=== PATIENT | female | born 1965 | race Asian ===

== ENCOUNTER 2021-09-17 11:30 | Outpatient (REF) | payer OTHER, SELFPAY ==
[2021-09-17 13:10] LABS: MANUAL DIFF FLAG NO
[2021-09-17 13:31] LABS: Basophils Percent Auto 0.3 % (0-2); Eosinophils Absolute Auto 0.1 X10*3/uL (0.0-0.4); Eosinophils Percent Auto 1.7 % (0-4); Hematocrit 31.2 % (37.0-47.0); Hemoglobin 9.5 g/dl (12.0-16.0); Imm Gran Abs Auto 0.01 X10*3/uL (0.00-0.03); Imm Gran Pct Auto 0.2 % (0.0-0.4); Lymphocytes Absolute Auto 1.2 X10*3/uL (1.2-4.9); Lymphocytes Percent Auto 20.3 % (20-40); Mean Corpuscular HGB Conc 30.4 g/dl (31.0-35.0); Mean Corpuscular Hemoglobin 23.2 pg (27.0-33.0); Mean Corpuscular Volume 76.3 fL (80.0-98.0); Mean Platelet Volume 9.6 fL (9.4-12.3); Monocytes Absolute Auto 0.5 X10*3/uL (0.1-1.2); Monocytes Percent Auto 8.1 % (2-11); Neutrophils Percent Auto 69.4 % (45-73); Platelet Count 372 X10*3/uL (160-400); Red Blood Count 4.09 X10*6/uL (4.20-5.50); Red Cell Distribution Width 15.7 % (11.0-16.0); White Blood Count 5.8 X10*3/uL (4.8-10.8)
[2021-09-17 13:37] LABS: Appearance Urine CLEAR; Color Urine YELLOW; Glucose Urine UA NEG (NEG); Leukocyte Esterase Urine NEG (NEG); Nitrite Urine NEG (NEG); Urine Blood NEG (NEG); Urine Ketones NEG (NEG); Urine Protein NEG (NEG-TRACE)
[2021-09-17 13:45] LABS: Alanine Aminotransferase 20 U/L (0-31); Albumin Level 4.4 g/dL (3.5-5.0); Alkaline Phosphatase 53 U/L (39-117); Anion Gap 13 (12-20); Aspartate Amino Transferase 21 U/L (5-31); Bilirubin Total 0.7 mg/dL (0.0-1.0); Blood Urea Nitrogen 14 mg/dL (9-16); Calcium 9.2 mg/dL (8.4-10.2); Carbon Dioxide 23 mmol/L (22-29); Chloride 107 mmol/L (96-108); Cholesterol 202 mg/dL; Estimated Glomerular Filt Rate > 60; Glucose Fasting 95 mg/dL (60-99); HDL Cholesterol 52 mg/dL; LDL Cholesterol Calculated 132 mg/dl; Potassium 4.3 mmol/L (3.3-5.1); Sodium 139 mmol/L (135-145); Total Protein 7.1 g/dL (6.5-8.0); Triglycerides 92 mg/dL
[2021-09-17 13:50] LABS: Bacteria Urine TRACE /LPF; RBC Urine 0-2 /HPF (0); Squamous Epithelial Cell Urine TRACE /LPF; WBC Urine 0-2 /HPF (0-4)
[2021-09-17 14:06] LABS: Thyroid Stimulating Hormone 0.27 uIU/mL (0.32-4.0); Vitamin D 25-OH Total 28.8 ng/mL (>30)
== END 2021-09-17 11:31 | disposition home or self-care (01) ==
LOC: HO.HMGCLDS 11:30
PROVIDERS: PCP Internal Medicine; Visit Provider Internal Medicine
DX: Z00.00 Encounter for general adult medical examination without abnormal findings (principal)
CPT/HCPCS: 36415; 80053; 80061; 81001; 82306; 84443; 85025

== ENCOUNTER 2021-09-19 12:37 | Outpatient (REF) | payer OTHER, SELFPAY ==
[2021-09-19 13:52] LABS: MANUAL DIFF FLAG NO
[2021-09-19 13:53] LABS: Basophils Percent Auto 0.3 % (0-2); Eosinophils Absolute Auto 0.1 X10*3/uL (0.0-0.4); Eosinophils Percent Auto 1.6 % (0-4); Hematocrit 29.8 % (37.0-47.0); Hemoglobin 9.2 g/dl (12.0-16.0); Imm Gran Abs Auto 0.02 X10*3/uL (0.00-0.03); Imm Gran Pct Auto 0.3 % (0.0-0.4); Lymphocytes Absolute Auto 1.2 X10*3/uL (1.2-4.9); Lymphocytes Percent Auto 19.8 % (20-40); Mean Corpuscular HGB Conc 30.9 g/dl (31.0-35.0); Mean Corpuscular Hemoglobin 23.5 pg (27.0-33.0); Mean Platelet Volume 9.5 fL (9.4-12.3); Monocytes Absolute Auto 0.6 X10*3/uL (0.1-1.2); Neutrophils Absolute Auto 4.3 x10*3/uL (2.0-8.3); Platelet Count 399 X10*3/uL (160-400); Red Blood Count 3.92 X10*6/uL (4.20-5.50); Red Cell Distribution Width 15.9 % (11.0-16.0); White Blood Count 6.2 X10*3/uL (4.8-10.8)
[2021-09-19 14:46] LABS: Iron 31 mcg/dL (30-160); Percent Iron Saturation 6 % (15-50); Total Iron Binding Capacity 525 mcg/dL (228-428); Unsaturated Iron Binding 494 ug/dL
[2021-09-19 14:58] LABS: Folate 17.1 ng/mL (> or = 4.0); Vitamin B12 425 pg/mL (200-900)
[2021-09-19 15:00] LABS: Ferritin 6 ng/mL (10-250); Free T4 (Free Thyroxine) 0.99 ng/dL (0.71-1.85); Thyroid Stimulating Hormone 0.19 uIU/mL (0.32-4.0)
[2021-09-21 04:06] LABS: Triiodothyronine T3 Free 3.2 pg/mL (2.3-4.2)
== END 2021-09-19 12:38 | disposition home or self-care (01) ==
LOC: HO.HMGCLDS 12:37
PROVIDERS: PCP Internal Medicine; Visit Provider Internal Medicine
DX: D64.9 Anemia, unspecified (principal)
CPT/HCPCS: 36415; 82607; 82728; 82746; 83540; 84439; 84443; 84481; 85025

== ENCOUNTER 2022-10-14 11:32 | Outpatient (REF) | payer OTHER, SELFPAY ==
[2022-10-14 13:33] LABS: MANUAL DIFF FLAG NO
[2022-10-14 13:35] LABS: Basophils Percent Auto 0.3 % (0-2); Eosinophils Absolute Auto 0.1 X10*3/uL (0.0-0.4); Eosinophils Percent Auto 2.3 % (0-4); Hematocrit 34.5 % (37.0-47.0); Hemoglobin 11.6 g/dl (12.0-16.0); Imm Gran Abs Auto 0.01 X10*3/uL (0.00-0.03); Imm Gran Pct Auto 0.2 % (0.0-0.4); Lymphocytes Absolute Auto 1.2 X10*3/uL (1.2-4.9); Lymphocytes Percent Auto 19.9 % (20-40); Mean Corpuscular HGB Conc 33.6 g/dl (31.0-35.0); Mean Corpuscular Hemoglobin 29.8 pg (27.0-33.0); Mean Corpuscular Volume 88.7 fL (80.0-98.0); Mean Platelet Volume 9.1 fL (9.4-12.3); Monocytes Absolute Auto 0.4 X10*3/uL (0.1-1.2); Monocytes Percent Auto 6.5 % (2-11); Neutrophils Absolute Auto 4.2 x10*3/uL (2.0-8.3); Neutrophils Percent Auto 70.8 % (45-73); Platelet Count 359 X10*3/uL (160-400); Red Blood Count 3.89 X10*6/uL (4.20-5.50); Red Cell Distribution Width 12.6 % (11.0-16.0)
[2022-10-14 13:37] LABS: Appearance Urine Turbid; Color Urine Yellow; Glucose Urine UA Negative (Negative); Leukocyte Esterase Urine Trace (Negative); Nitrite Urine Negative (Negative); Specific Gravity - Urine 1.025 (1.005-1.025); UMIC TRIGGER UA YES; Urine Blood Negative (Negative); Urine Ketones Trace mg/dL (Negative); Urine Protein Trace mg/dL (Neg-Trace)
[2022-10-14 13:39] LABS: Bacteria Urine 2+ (None Seen); Hyaline Casts Urine 0-2 /LPF (0-2)
[2022-10-14 13:54] LABS: Alanine Aminotransferase 25 U/L (0-31); Albumin Level 4.2 g/dL (3.5-5.0); Alkaline Phosphatase 45 U/L (39-117); Anion Gap 9 (12-20); Aspartate Amino Transferase 21 U/L (5-31); Bilirubin Total 0.8 mg/dL (0.0-1.0); Blood Urea Nitrogen 14 mg/dL (9-16); Calcium 8.6 mg/dL (8.4-10.2); Carbon Dioxide 27 mmol/L (22-29); Chloride 107 mmol/L (96-108); Cholesterol 207 mg/dL; Estimated Glomerular Filt Rate > 60; Glucose Fasting 99 mg/dL (60-99); HDL Cholesterol 61 mg/dL; Iron 62 mcg/dL (30-160); LDL Cholesterol Calculated 124 mg/dl; Percent Iron Saturation 18 % (15-50); Potassium 3.9 mmol/L (3.3-5.1); Sodium 139 mmol/L (135-145); Total Iron Binding Capacity 354 mcg/dL (228-428); Total Protein 6.4 g/dL (6.5-8.0); Triglycerides 113 mg/dL; Unsaturated Iron Binding 292 ug/dL
[2022-10-14 14:10] LABS: Ferritin 15 ng/mL (10-250); Free T4 (Free Thyroxine) 0.88 ng/dL (0.71-1.85); Thyroid Stimulating Hormone 0.39 uIU/mL (0.32-4.0); Vitamin D 25-OH Total 25.9 ng/mL (>30)
[2022-10-16 06:49] LABS: Triiodothyronine T3 Free 3.7 pg/mL (2.3-4.2)
== END 2022-10-14 11:33 | disposition home or self-care (01) ==
LOC: HO.HMGCLDS 11:32
PROVIDERS: PCP Internal Medicine; Visit Provider Internal Medicine
DX: Z00.00 Encounter for general adult medical examination without abnormal findings (principal); N39.3 Stress incontinence (female) (male); D64.9 Anemia, unspecified
CPT/HCPCS: 36415; 80053; 80061; 81001; 82306; 82728; 83540; 84439; 84443; 84481; 85025

== ENCOUNTER 2023-10-27 10:45 | Outpatient (REF) | payer OTHER, SELFPAY ==
[2023-10-27 13:53] LABS: MANUAL DIFF FLAG NO
[2023-10-27 13:57] LABS: Appearance Urine Cloudy; Color Urine Yellow; Glucose Urine UA Negative (Negative); Leukocyte Esterase Urine Negative (Negative); Nitrite Urine Negative (Negative); PH 5.5 (5.0-9.0); Specific Gravity - Urine 1.025 (1.005-1.025); Urine Blood Negative (Negative); Urine Ketones Trace mg/dL (Negative); Urine Protein Negative (Neg-Trace)
[2023-10-27 13:58] LABS: Basophils Percent Auto 0.4 % (0-2); Eosinophils Absolute Auto 0.2 X10*3/uL (0.0-0.4); Eosinophils Percent Auto 2.2 % (0-4); Hematocrit 34.7 % (37.0-47.0); Hemoglobin 11.4 g/dl (12.0-16.0); Imm Gran Abs Auto 0.02 X10*3/uL (0.00-0.03); Imm Gran Pct Auto 0.3 % (0.0-0.4); Lymphocytes Absolute Auto 1.3 X10*3/uL (1.2-4.9); Lymphocytes Percent Auto 18.5 % (20-40); Mean Corpuscular HGB Conc 32.9 g/dl (31.0-35.0); Mean Corpuscular Hemoglobin 27.7 pg (27.0-33.0); Mean Corpuscular Volume 84.4 fL (80.0-98.0); Mean Platelet Volume 9.8 fL (9.4-12.3); Monocytes Absolute Auto 0.6 X10*3/uL (0.1-1.2); Monocytes Percent Auto 7.7 % (2-11); Neutrophils Absolute Auto 5.1 x10*3/uL (2.0-8.3); Neutrophils Percent Auto 70.9 % (45-73); Platelet Count 302 X10*3/uL (160-400); Red Blood Count 4.11 X10*6/uL (4.20-5.50); Red Cell Distribution Width 13.9 % (11.0-16.0); White Blood Count 7.2 X10*3/uL (4.8-10.8)
[2023-10-27 15:00] LABS: Alanine Aminotransferase 27 U/L (0-31); Albumin Level 4.2 g/dL (3.5-5.0); Alkaline Phosphatase 54 U/L (39-117); Anion Gap 13 (12-20); Aspartate Amino Transferase 20 U/L (5-31); Bilirubin Total 0.7 mg/dL (0.0-1.0); Blood Urea Nitrogen 13 mg/dL (9-16); Calcium 9.2 mg/dL (8.4-10.2); Carbon Dioxide 26 mmol/L (22-29); Chloride 105 mmol/L (96-108); Cholesterol 218 mg/dL (<200); Estimated Glomerular Filt Rate > 60; Glucose Fasting 86 mg/dL (60-99); HDL Cholesterol 59 mg/dL (>40); Iron 58 mcg/dL (30-160); LDL Cholesterol Calculated 126 mg/dL (<100); Percent Iron Saturation 16 % (15-50); Potassium 3.8 mmol/L (3.3-5.1); Sodium 140 mmol/L (135-145); Total Iron Binding Capacity 373 mcg/dL (228-428); Total Protein 6.9 g/dL (6.5-8.0); Triglycerides 166 mg/dL (<150); Unsaturated Iron Binding 315 ug/dL
[2023-10-27 15:15] LABS: Ferritin 9 ng/mL (10-250); Thyroid Stimulating Hormone 0.46 uIU/mL (0.32-4.0); Vitamin D 25-OH Total 21.1 ng/mL (>30)
== END 2023-10-27 10:46 | disposition home or self-care (01) ==
LOC: HO.HMGCLDS 10:45
PROVIDERS: PCP Internal Medicine; Visit Provider Internal Medicine
DX: Z00.00 Encounter for general adult medical examination without abnormal findings (principal); N39.3 Stress incontinence (female) (male)
CPT/HCPCS: 36415; 80053; 80061; 81003; 82306; 82728; 83540; 84443; 85025; 87086

== ENCOUNTER → 2025-08-31 15:29 | Outpatient (AMB) | payer OTHER, SELFPAY ==
--- NOTE | 2025-08-31 15:34 | A.OFFPC_ITS ---
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 - The patient is overdue for a surveilla nce colonoscopy. - Her last procedure was approximately s even years ago, in September 2019, at which time an 8 mm polyp was removed, with a recommendation for a repeat colo noscopy in five years. - She reports a concern about hearing lo ss, prompted by her 's observation that she frequently asks him to repeat himself. - The patient herself denies any subject sara hearing difficulty, including with phone conversations, and notes no one else has commented on her hearing. - The patient reports urinary leakage wi th physical exertion, such as heavy lifting, running, coughing, and laughing too much. - She underwent a previous evaluation fo r this, at which time surgery was suggested, but she declined. - She has heard of Kegel exercises but d oes not currently perform them and reports the incontinence does not significantly affect her quality of life. - Past medical history is notable for ir on deficiency. - She is postmenopausal. - For health maintenance, she is up-to-d ate with mammograms but is due for a gynecological exam. - She declines influenza vaccinations. - The patient does not take any medicati ons. Social History - Employment: The patient works as a dante ntitative business travel consultant. - Tobacco Use: Denies smoking. - Alcohol Use: Denies alcohol consumptio n. - Exercise: Reports running at least twi ce a week for more than 10 miles. Results - Colonoscopy (September 2019): Revealed an 8 mm polyp, which was removed. [facility] History History of colonoscopy (~09/24/19) Family History (Updated 08/31/25 @ 15:41 by RAOUL Miller) Father No problems noted. Mother Diabetes Social History (Updated 08/31/25 @ 15:35 by RAOUL Miller) Housing: House Alcohol intake: current Alcohol intake frequency: does not drink Patient Tobacco Use Status: Never used Tobacco service: No Current occupational status: employed Cognitive needs: No Hearing needs: No Vision needs: No Questionnaire PHQ-9 Over the last 2 weeks, how often have you been bothered by any of the following problems? 1. Little interest or pleasure in doing things: not at all 2. Feeling down, depressed, or hopeless: not at all 3. Trouble falling or staying asleep, or sleeping too much: not at all 4. Feeling tired or having little energy: not at all 5. Poor appetite or overeating: not at all 6. Feeling bad about yourself - or that you are a failure or have let yourself o r your family down: not at all 7. Trouble concentrating on things, such as reading the newspaper or watching television: not at all 8. Moving or speaking so slowly that other people could have noticed. Or the opposite - being so fidgety or restless that you have been moving around a lot more than usual: not at all 9. Thoughts that you would be better off or of hurting yourself in some way: not at all Total score: 0 Source: Developed by Drs. Arcenio Ponce, Jo Ann Hubbard, Delgado De La O and colleagues, with an educational jonah from [employer]. Thrive Questionnaire Date Thrive assessed: 08/31/25 I am a: Patient What is your living situation today?: I have a steady place to live Within the past 12 months, did the food you bought not last and you didn't have the money to get more?: Never true Within the past 12 months, did you worry whether your food would run out before you got money to buy more?: Never true Do you have trouble paying for medicines?: No Do you have trouble getting transportation to medical appointments?: No Do you have trouble paying your heating and electricity bill?: No Do you have trouble taking care of your child, family member or friend?: No Do you have trouble with day-to-day activities such as bathing, preparing meals, shopping, managing finances, etc.?: No Are you currently unemployed and looking for a job?: No Are you interested in more education?: No Please select the resources that you would like help with: None THRIVE Score: 0 AUDIT C Alcohol Use Questionnaire (AUDIT-C) 1. How often do you have a drink containing alcohol?: Never 3. How often do you have six or more drinks on one occasion?: Never Total Score: 0 BRANDON-7 AMB Questionnaire BRANDON-7 Date BRANDON - 7 assessed: 08/31/25 Feeling nervous, anxious, or on edge: 0 = Not at all Not being able to stop or control worryin = Not at all Worrying too much about different things: 0 = Not at all Trouble relaxin = Not at all Being so restless that it is hard to sit still: 0 = Not at all Becoming easily annoyed or irritable: 0 = Not at all Feeling afraid as if something awful might happen: 0 = Not at all Total BRANDON-7 score (0-4 normal; 5-9 mild; 10-14 moderate; 15-21 severe): 0 Source: Developed by Drs. Arcenio Ponce, Jo Ann Hubbard, Delgado De La O and colleagues, with an educational jonah from [employer]. Review of Systems Narrative Review of Systems - General: Reports feeling well. - HEENT: Reports potential hearing difficulties as noted by her . - Denies vision problems, halos, or issues with night driving. - Genitourinary: Reports urinary leakage with exertion, coughing, and laughing. - She is postmenopausal. - Musculoskeletal: Denies pain. - Sleep: Reports good sleep. Physical exam (Primary Care) Vital Signs: Last Vital Signs Temp 98.2 F 08/31/25 15:36 Pulse 80 08/31/25 15:36 Resp 14 08/31/25 15:36 BP 111/53 L 08/31/25 15:36 Pulse Ox 99 08/31/25 15:36 Oxygen Delivery Method Room Air 08/31/25 15:36 BMI result Body Mass Index 25.1 Tobacco/Smoking Status: Tobacco use Status Tobacco use date assessed 08/31/25 08/31/25 15:35 Patient Tobacco Use Status Never used Tobacco 08/31/25 15:35 PHQ-9: PHQ-9 Score PHQ-9: Total score 0 08/31/25 15:35 Thrive Assessment: Date of Thrive Assessment Date Thrive assessed 08/31/25 08/31/25 15:35 Narrative Physical Exam General: Cooperative and healthy appearing Nutritional Appearance: Well nourished Orientation/consciousness: Patient oriented x3 Limitations: No limitations Head: Normal to inspection General: Appearance normal, both eyes and all related structures Neck: Normal visual inspection Chest: Normal palpation of entire chest wall Respiratory: Normal respiratory effort Neurology: Patient oriented x3 Office Procedures Flu Questionnaire Does the patient have a severe egg allergy?: No Does the patient have severe life threatening allergies?: No Does the patient have a fever or illness today?: No Has the patient ever had Guillain-Amigo Syndrome?: No Has the patient ever had any past reaction to a flu shot?: No Immunizations Fluarix [id number] (PF) 45 mcg (15 mcg x 3)/0.5 mL IM syringe Performing Provider: Fernando Orantes MD [facility] Documented (not given) by: RAOUL Miller on 08/31/25 15:41 Reason Not Given: Patient Refused Coding Level of Care Code New Pt Prev Care 40-64y(55485) Diagnoses Hyperlipidemia E78.5 Annual physical exam Z00.00 Assessment & Plan Assessment & Plan (1) Hyperlipidemia: Code(s): E78.5 - Hyperlipidemia, unspecified Plan: Blood work ordered (2) Annual physical exam: Code(s): Z00.00 - Encounter for general adult medical examination without abnormal findings Plan: History of Present Illness - The patient is a 59-year-old female presenting for an annual physical examination. - The patient is overdue for a surveillance colonoscopy. - Her last procedure was approximately seven years ago, in September 2019, at which time an 8 mm polyp was removed, with a recommendation for a repeat colonoscopy in five years. - She reports a concern about hearing loss, prompted by her 's observation that she frequently asks him to repeat himself. - The patient herself denies any subjective hearing difficulty, including with phone conversations, and notes no one else has commented on her hearing. - The patient reports urinary leakage with physical exertion, such as heavy lifting, running, coughing, and laughing too much. - She underwent a previous evaluation for this, at which time surgery was suggested, but she declined. - She has heard of Kegel exercises but does not currently perform them and reports the incontinence does not significantly affect her quality of life. - Past medical history is notable for iron deficiency. - She is postmenopausal. - For health maintenance, she is up-to-date with mammograms but is due for a gynecological exam. - She declines influenza vaccinations. - The patient does not take any medications. Social History - Employment: The patient works as a clinical consultant. - Tobacco Use: Denies smoking. - Alcohol Use: Denies alcohol consumption. - Exercise: Reports running at least twice a week for more than 10 miles. Review of Systems - General: Reports feeling well. - HEENT: Reports potential hearing difficulties as noted by her . - Denies vision problems, halos, or issues with night driving. - Genitourinary: Reports urinary leakage with exertion, coughing, and laughing. - She is postmenopausal. - Musculoskeletal: Denies pain. - Sleep: Reports good sleep. Physical Exam General: Cooperative and healthy appearing Nutritional Appearance: Well nourished Orientation/consciousness: Patient oriented x3 Limitations: No limitations Head: Normal to inspection General: Appearance normal, both eyes and all related structures Neck: Normal visual inspection Chest: Normal palpation of entire chest wall Respiratory: Normal respiratory effort Neurology: Patient oriented x3 Results - Colonoscopy (September 2019): Revealed an 8 mm polyp, which was removed. Plan - Colonoscopy: A referral will be placed for a surveillance colonoscopy. - The patient will be contacted by the scheduling office for an appointment. - Hearing Evaluation: A referral for an audiology test will be sent. - The patient was advised she could cancel the appointment if she chooses not to proceed. - Stress Urinary Incontinence: Recommended performing Kegel exercises two to three times daily for two to three minutes per session to strengthen pelvic floor muscles. - Health Maintenance: Ordered blood work, including cholesterol, kidney function, liver function, complete blood count, and thyroid studies. - Advised patient to schedule her due gynecological exam/Pap smear. - Lifestyle: Encouraged to continue regular exercise, healthy eating, and stress management. - Follow-up: Plan to see the patient in six months. Discussion Notes I advised the patient that she is overdue for a surveillance colonoscopy, which was recommended every 5 years after an 8 mm polyp was removed in 2019. I have placed a referral and informed her that she will receive a call to schedule the procedure. Regarding her 's concern about her hearing, I have offered a referral for formal audiology testing, explaining she can cancel if she does not wish to proceed. I explained that her urinary leakage with exertion is known as stress incontinence and can be managed with Kegel exercises to improve pelvic muscle tone. I reassured her that treatment decisions are based on the impact on quality of life. I ordered routine lab work, including a CBC, metabolic panel, lipid panel, and thyroid function tests, and instructed her to schedule her overdue gynecological exam. We discussed the efficacy and limitations of cancer screening tests, and I encouraged her to continue her healthy lifestyle. All questions were answered, and she will follow up in 6 months. Patient Instructions - You will receive a phone call to schedule an appointment for a colonoscopy. - If you do not hear from them within two weeks, please contact our office. - You will also receive a call to schedule a hearing test. - If you do not want to have this test done, you may cancel the appointment. - To help with urine leakage, perform Kegel exercises 2-3 times every day. - To do this, tighten the muscles you would use to stop urinating, and hold for a few seconds, repeating for 2-3 minutes. - Please go to the lab to get your blood work done. - We will call you with the results. - Please schedule an appointment with a care advocate for a female checkup since it is now due. - Continue to exercise regularly and eat a healthy diet. - Please schedule a follow-up appointment in our office in 6 months. Plan Plan - Colonoscopy: A referral will be placed for a surveillance colonoscopy. - The patient will be contacted by the scheduling office for an appointment. - Hearing Evaluation: A referral for an audiology test will be sent. - The patient was advised she could cancel the appointment if she chooses not to proceed. - Stress Urinary Incontinence: Recommended performing Kegel exercises two to three times daily for two to three minutes per session to strengthen pelvic floor muscles. - Health Maintenance: Ordered blood work, including cholesterol, kidney function, liver function, complete blood count, and thyroid studies. - Advised patient to schedule her due gynecological exam/Pap smear. - Lifestyle: Encouraged to continue regular exercise, healthy eating, and stress management. - Follow-up: Plan to see the patient in six months. Discussion Notes I advised the patient that she is overdue for a surveillance colonoscopy, which was recommended every 5 years after an 8 mm polyp was removed in 2019. I have placed a referral and informed her that she will receive a call to schedule the procedure. Regarding her 's concern about her hearing, I have offered a referral for formal audiology testing, explaining she can cancel if she does not wish to proceed. I explained that her urinary leakage with exertion is known as stress incontinence and can be managed with Kegel exercises to improve pelvic muscle tone. I reassured her that treatment decisions are based on the impact on quality of life. I ordered routine lab work, including a CBC, metabolic panel, lipid panel, and thyroid function tests, and instructed her to schedule her overdue gynecological exam. We discussed the efficacy and limitations of cancer screening tests, and I encouraged her to continue her healthy lifestyle. All questions were answered, and she will follow up in 6 months. Patient Instructions - You will receive a phone call to schedule an appointment for a colonoscopy. - If you do not hear from them within two weeks, please contact our office. - You will also receive a call to schedule a hearing test. - If you do not want to have this test done, you may cancel the appointment. - To help with urine leakage, perform Kegel exercises 2-3 times every day. - To do this, tighten the muscles you would use to stop urinating, and hold for a few seconds, repeating for 2-3 minutes. - Please go to the lab to get your blood work done. - We will call you with the results. - Please schedule an appointment with a care advocate for a female checkup since it is now due. - Continue to exercise regularly and eat a healthy diet. - Please schedule a follow-up appointment in our office in 6 months. Orders: Orders Basic Metabolic Panel Today E78.5 - Hyperlipidemia, unspecified Liver Panel Today E78.5 - Hyperlipidemia, unspecified UA and rflx microscopic Today E78.5 - Hyperlipidemia, unspecified Influenza [id number] Immunization Today Z23 - Encounter for immunization Complete Blood Count no Diff Today E78.5 - Hyperlipidemia, unspecified Lipid Panel Today E78.5 - Hyperlipidemia, unspecified Thyroid Stimulating Hormone Today E78.5 - Hyperlipidemia, unspecified Referrals Audiology Referral H91.90 - Unspecified hearing loss, unspecified ear Gastroenterology Referral Z12.11 - Encounter for screening for malignant neoplasm of colon
[2025-08-31 15:36] VITALS: BP 111/53; PULSE 80; RESP 14; TEMP 36.8; O2SAT 99; BMI 25.1
--- OUTSIDE RECORDS SUMMARY | 2025-09-01 06:05 | XMS_ITS | Clinical Summary ---
Author Organization [address] Address [address] [place] [address] Phone Care Team Providers Care Autocad Detailer Name Role Phone Libia Martínez MD Primary Care Provider + [phone] Surgical History Surgery Date Site/Laterality Comments CHOLECYSTECTOMY 2007 PROCEDURE: HISTORICAL CHOLECYSTECTOMY OTHER SURGICAL HISTORY 09/01/2010 PROCEDURE: [place] SALPINGO-OOPHORECTOMY COMPL/PRTL UNI/BI SPX; COMMENT: LSO for removal of dermoid TUBAL LIGATION 09/01/2010 PROCEDURE: HISTORICAL TUBAL LIGATION Family History Medical History Relation Name Comments Diabetes Mother Stroke Mother Breast cancer Neg Hx Colon cancer Neg Hx Ovarian cancer Neg Hx Relation Name Status Comments Brother Alive Daughter Alive Father (Age 65) Throat can cer Mother Alive DM and CVA Son Alive Social History Tobacco Use Types Packs/Day Years Used Date Smoking Tobacco: Never Smokeless Tobacco: Never Alcohol Use Standard Drinks/Week Comments No 0 (1 standard drink = 0.6 oz pur e alcohol) Comments Unknown Sex and Gender Information Value Date Recorded Sex Assigned at Not on file Legal Sex Female 9:52 PM EST Gender Identity Not on file Sexual Orientation Not on file Obstetrics History Para Term AB IAB SAB Ectopic Multiple Livin g Live Births 2 2 2 2 Date Outcome GA Total Labor Labor/2nd/3rd Weight Sex Type Anes PTL Anila A1 A5 Name Clin Term Term Plan of Treatment Health Maintenance Due Date Last Done Comments Colorectal Cancer Screening: Colonoscopy 1967 Hepatitis B Vaccines (1 of 3 - 19+ 3-dose series) 12/23/1986 Cervical Cancer Screening: Pap Smear 12/23/1988 Pneumococcal Vaccine: 50+ Years (1 of 1 - PCV) 12/23/2017 Zoster Vaccines (1 of 2) 12/23/2017 HIV Screening 09/24/2022 Hepatitis C Screening 09/24/2022 Social Influencers of Health Screening 09/24/2022 DTaP,Tdap,and Td Vaccines (2 - Td or Tdap) 01/03/2023 01/03/2013 Depression Screening 10/15/2024 COVID-19 Vaccine (1 - season) 2025 Influenza Vaccine (#1) 2025 Breast Cancer Screening 11/26/2026 11/26/19, 07/17/2023, 07/12/2022, Additional history exists RSV Immunization Adult Patients (1 - 1-dose 75+ series) 12/23/2042 HIB Vaccines Aged Out No longer eligi ble based on patient's age to complete this topic HPV Vaccines Aged Out No longer eligi ble based on patient's age to complete this topic Hepatitis A Vaccines Aged Out No long er eligible based on patient's age to complete this topic IPV Vaccines Aged Out No longer eligi ble based on patient's age to complete this topic MMR Vaccines Aged Out No longer eligi ble based on patient's age to complete this topic Meningococcal ACWY Vaccine Aged Out N o longer eligible based on patient's age to complete this topic Meningococcal B Vaccine Aged Out No l onger eligible based on patient's age to complete this topic RSV Immunization Patients Under 20 months Aged Out No longer eligible based on patient's age to complete this topic Varicella Vaccines Aged Out No longer eligible based on patient's age to complete this topic Procedures Procedure Name Priority Date/Time Associated Diagnosis Comments MG MAMMO DIGITAL SCREENING W UBALDO BILAT Routine 11/26/2024 3:57 PM EST Screening mammogram, encounter for from Last 3 Months or Most Recently Relevant to Health Maintenance Results * MG Mammo Digital Screening w Ubaldo bilat (11/26/2024 3:57 PM EST) Anatomical Region Laterality Modality Breast Bilateral Mammography 11/27/2024 12:0 8 PM EST Impressions 11/27/2024 12:11 PM EST No mammographic evidence of malignancy. BREAST DENSITY: C - The breasts are heterogeneously dense which may obscure small masses. BI-RADS CATEGORY: 1 - NEGATIVE RECOMMENDATION: Screening bilateral mammogram is recommended in 1 year. MAMMO LOCATION: [facility], [address] [place] [address], [id number], . -------- FINAL REPORT -------- Dictated By: Cindy Fam Dictated Date: 11/27/2024 12:08 ET Assigned Physician: Cindy Fam Reviewed and Electronically Signed By: Cindy Fam Signed Date: 11/27/2024 12:11 ET Workstation ID: [id number] Transcribed By: Self Edit Transcribed Date: 11/27/2024 12:08 ET Narrative 11/27/2024 12:11 PM EST EXAM: Screening Mammogram CLINICAL: 58 years old, Female, routine annual exam. COMPARISON: 07/17/2023 and as far back as 07/02/2021 TECHNIQUE: Bilateral MLO and CC views were obtained digitally with 3-D mammogram (digital breast tomosynthesis). Computer-aided detection was utilized in evaluation of this exam (CAD). FINDINGS: No new suspicious mass, architectural distortion, or suspicious calcifications. Procedure Note Cindy Fam MD - 11/27/2024 EXAM: Screening Mammogram CLINICAL: 58 years old, Female, routine annual exam. COMPARISON: 07/17/2023 and as far back as 07/02/2021 TECHNIQUE: Bilateral MLO and CC views were obtained digitally with 3-Dmammogram (digital breast tomosynthesis). Computer-aided detection wasutilized in evaluation of this exam (CAD). FINDINGS: No new suspicious mass, architectural distortion, or suspiciouscalcifications. IMPRESSION: No mammographic evidence of malignancy. BREAST DENSITY: C - The breasts are heterogeneously dense which mayobscure small masses. BI-RADS CATEGORY: 1 - NEGATIVE RECOMMENDATION: Screening bilateral mammogram is recommended in 1 year. MAMMO LOCATION: [facility], [address] [place] [address], [id number], . -------- FINAL REPORT -------- Dictated By: Cindy Fam Dictated Date: 11/27/2024 12:08 ET Assigned Physician: Cindy Fam Reviewed and Electronically Signed By: Cindy Fam Signed Date: 11/27/2024 12:11 ET Workstation ID: [id number] Transcribed By: Self Edit Transcribed Date: 11/27/2024 12:08 ET Le Jensen DO IMG BI PROCEDURES Final R esult from Last 3 Months or Most Recently Relevant to Health Maintenance Insurance [employer] Care Teams Autocad Detailer Relationship Specialty Start Date End Date Libia Martínez MD [address] [place] [id number] PCP - General Internal Medicine 01/03/18
== END ==
PROVIDERS: PCP Internal Medicine; Visit Provider Internal Medicine
DX: Z00.00 Encounter for general adult medical examination without abnormal findings (principal); E78.5 Hyperlipidemia, unspecified; Z23 Encounter for immunization

== ENCOUNTER → 2025-08-31 15:29 | Outpatient (BNVA) | payer OTHER, SELFPAY | PROVIDERS: PCP Internal Medicine; Visit Provider Internal Medicine | DX: Z00.00 Encounter for general adult medical examination without abnormal findings (principal); R32 Unspecified urinary incontinence; E78.5 Hyperlipidemia, unspecified; Z28.21 Immunization not carried out because of patient refusal | CPT/HCPCS: 90471; 96127 ==

== ENCOUNTER 2025-09-02 11:51 | Outpatient (REF) | payer OTHER, SELFPAY ==
[2025-09-02 13:13] LABS: Appearance Urine Clear; Glucose Urine UA Negative (Negative); PH 6.0 (5.0-9.0); Specific Gravity - Urine 1.015 (1.005-1.025); UMIC TRIGGER UA YES
[2025-09-02 13:36] LABS: Hematocrit 39.9 % (37.0-47.0); Hemoglobin 13.3 g/dl (12.0-16.0); Mean Corpuscular HGB Conc 33.3 g/dl (31.0-35.0); Mean Corpuscular Hemoglobin 30.4 pg (27.0-33.0); Mean Corpuscular Volume 91.3 fL (80.0-98.0); NRBC Abs Auto 0.000 X10*3/uL (0.0-0.012); NRBC Pct Auto 0.0 /100WBC (0.0-0.2); Platelet Count 287 X10*3/uL (160-400); Red Blood Count 4.37 X10*6/uL (4.20-5.50); White Blood Count 11.0 X10*3/uL (4.8-10.8)
[2025-09-02 15:46] LABS: Alanine Aminotransferase 35 U/L (0-31); Albumin Level 4.8 g/dL (3.5-5.0); Alkaline Phosphatase 60 U/L (39-117); Anion Gap 9 (12-20); Aspartate Amino Transferase 29 U/L (5-31); Blood Urea Nitrogen 20 mg/dL (9-16); Calcium 9.1 mg/dL (8.4-10.2); Carbon Dioxide 29 mmol/L (22-29); Chloride 104 mmol/L (96-108); Cholesterol 206 mg/dL (<200); Estimated Glomerular Filt Rate > 60; HDL Cholesterol 62 mg/dL (>40); Potassium 3.8 mmol/L (3.3-5.1); Sodium 138 mmol/L (135-145); Total Protein 7.3 g/dL (6.5-8.0); Triglycerides 115 mg/dL (<150)
[2025-09-02 16:02] LABS: Thyroid Stimulating Hormone 0.30 uIU/mL (0.32-4.0)
== END 2025-09-02 11:52 | disposition home or self-care (01) ==
LOC: HO.HMGCLDS 11:51
PROVIDERS: PCP Internal Medicine; Visit Provider Internal Medicine
DX: E78.5 Hyperlipidemia, unspecified (principal)
CPT/HCPCS: 36415; 80048; 80061; 80076; 81001; 84443; 85027